=== PATIENT | male | born 1950 | race Caucasian/White ===

== ENCOUNTER 2017-09-01 10:04 | Emergency (ER) | payer MEDICARE, BC ==
[2017-09-01] MEDS ORDERED: NS 0.9% 1000 ML* 1,000 ML IV ONE (10:19)
[2017-09-01] MEDS ORDERED: methylPREDNISolone 125 MG* 2 ML VIAL IV ONE (10:20)
[2017-09-01] MEDS ORDERED: diPHENhydraMINE IV* 25 MG in NS 0.9% 50 ML* 50 ML IVPB ONE (10:20)
--- NOTE | 2017-09-01 10:21 | UC ---
Allergic Reaction HPI - HPI Summary HPI Summary: stung by a bee on right lower leg about 1 hour prior to arrival took 25 mg po Benadryl abut 30 mins [employer]. c/o some chest tightness ,rash some facial swelling - History of Current Complaint Chief Complaint: UCAllergicReaction Stated Complaint: BEE STING Time Seen by Provider: 09/01/17 10:09 Hx Obtained From: Patient Onset/Duration: Sudden Onset, Lasting Hours - 1, Still Present Severity Initially: Moderate Severity Currently: Moderate Location: Diffuse Character: Swelling, Pruritus Alleviating Factor(s): Antihistamines Associated Signs And Symptoms: Positive: Lightheadedness, Rash - Related Hx Possible Reaction To: Insect - Allergies/Home Medications Allergies/Adverse Reactions: Allergies Allergy/AdvReac Type Severity Reaction Status Date / Time bee venom protein (honey bee) Allergy Hives/Diff. Verified 09/01/17 10:36 Breathing/I tching Home Medications: Home Medications Levothyroxine TAB* [Synthroid 25 MCG TAB*] 25 mcg PO 0800 09/01/17 [History Confirmed 09/01/17] PMH/Surg Hx/FS Hx/Imm Hx Previously Healthy: No Endocrine History: Hypothyroidism, Dyslipidemia - Family History Known Family History: Positive: None - Social History Occupation: Retired Lives: With Family Alcohol Use: Rare Substance Use Type: None Review of Systems Constitutional: Negative Skin: Rash Eyes: Negative ENT: Negative Respiratory: Shortness Of Breath Cardiovascular: Other - chest tightness Gastrointestinal: Negative Genitourinary: Negative Motor: Negative Neurovascular: Negative Musculoskeletal: Negative Neurological: Negative Psychological: Negative Is Patient Immunocompromised?: No All Other Systems Reviewed And Are Negative: Yes Physical Exam Triage Information Reviewed: Yes Appearance: Well-Appearing, No Pain Distress, Well-Nourished Vital Signs Reviewed: Yes Eye Exam: Normal Eyes: Positive: Conjunctiva Clear ENT Exam: Normal ENT: Positive: Normal ENT inspection, Hearing grossly normal, Pharynx normal, TMs normal, Uvula midline. Negative: Nasal congestion, Tonsillar exudate, Trismus, Muffled voice, Hoarse voice, Dental tenderness, Sinus tenderness Dental Exam: Normal Neck exam: Normal Neck: Positive: Supple, Nontender, No Lymphadenopathy Respiratory Exam: Normal Respiratory: Positive: Chest non-tender, Lungs clear, Normal breath sounds, No respiratory distress, No accessory muscle use Cardiovascular Exam: Normal Cardiovascular: Positive: RRR, No Murmur, Pulses Normal, Brisk Capillary Refill Abdominal Exam: Normal Abdomen Description: Positive: Nontender, No Organomegaly, Soft Bowel Sounds: Positive: Present Musculoskeletal Exam: Normal Musculoskeletal: Positive: Strength Intact, ROM Intact, No Edema Neurological Exam: Normal Neurological: Positive: Alert, Muscle Tone Normal Psychological Exam: Normal Skin Exam: Other Skin: Positive: rashes - red raised, swelling below eyes Diagnostics - EKG Cardiac Rate: NL Cardiac Rhythm: Sinus: Normal Ectopy: PVCs ST Segment: Normal Re-Evaluation - Re-Evaluation First Eval Re-Evaluation Time: 11:30 Change: Improved Comment: all symptoms have resolved--ekg repeated NSR no PVC, no ST seg changes Allergic Reaction Course/Dx - Course Course Of Treatment: ivf, benadryl, solmedrol, observe follow with pcp in 2-3 days - Differential Dx/Diagnosis Provider Diagnoses: allergic reaction to Bee sting Discharge - Sign-Out/Discharge Documenting (check all that apply): Patient Departure - Discharge Plan Condition: Stable Disposition: HOME Prescriptions: predniSONE TAB* [Deltasone 20 MG TAB*] 40 mg PO DAILY 3 Days #6 tab Patient Education Materials: Diphenhydramine (By mouth), Insect Bite or Sting ( ED), General Allergic Reaction (ED), Cold Compress or Soak (ED) Referrals: Leland Stanford MD [Primary Care Provider] - 3 Days - Billing Disposition and Condition Condition: STABLE Disposition: Home
[2017-09-01 12:02] VITALS: BP 142/78
[2017-09-01] MEDS ORDERED: diPHENhydraMINE IV* 50 MG/ML 1 ml VIAL (BENADRYL) ONE (12:27)
== END 2017-09-01 12:00 | disposition home or self-care (01) ==
LOC: UCEAST 10:04
DX: T63.441A Toxic effect of venom of bees, accidental (unintentional), initial encounter (principal); M79.89 Other specified soft tissue disorders; E78.5 Hyperlipidemia, unspecified; E03.9 Hypothyroidism, unspecified
CPT/HCPCS: 93005; 96360; 96374; 96375; 99212; G0463; J1200; J2930

== ENCOUNTER 2018-09-16 08:56 | Emergency (ER) | payer MEDICARE, BC ==
[2018-09-16 09:08] VITALS: BP 143/73
--- NOTE | 2018-09-16 09:25 | UC ---
Skin Complaint HPI - HPI Summary HPI Summary: Patient is 68 year old male, who present today to the urgent care with bilateral eye swelling for past 3 days. There is swelling around the eyelids bilaterally and has progressively got worse.Denies any new soap, detergent , cosmetics, food or a possible exposure. He reports having a similar episode last year that resolved with some eye ointment. He denies any eye discharge or difficulty with his vision. He does not use any contact lenses but uses his reading glasses which are nickel plated. Denies any fever, chills, cough chest pain or shortness of breath . No diaphoresis. Denies any abdominal pain , nausea or vomiting , diarrhea or constipation. He has been taking Benadryl [id number]. - History of Current Complaint Chief Complaint: UCSkin Time Seen by Provider: 09/16/18 09:03 Stated Complaint: RASH AROUND EYES Hx Obtained From: Patient Pain Intensity: 4 - Allergy/Home Medications Allergies/Adverse Reactions: Allergies Allergy/AdvReac Type Severity Reaction Status Date / Time amoxicillin [From Augmentin] Allergy Hives Verified 09/16/18 09:08 bee venom protein (honey bee) Allergy Hives, Verified 09/16/18 09:08 hypotension clavulanic acid Allergy Hives Verified 09/16/18 09:08 [From Augmentin] Home Medications: Home Medications Ezetimibe TAB* [Zetia TAB*] 10 mg PO DAILY 09/16/18 [History Confirmed 09/16/18] diphenhydrAMINE HCl [Benadryl Allergy 25 MG CAP] 25 mg PO 09/16/18 [History] PMH/Surg Hx/FS Hx/Imm Hx - Additional Past Medical History Additional PMH: Past Medical History : Hypothyroidism, rheumatic fever as a child, hyperlipidemia. Past Surgical History: The surgery, sinus surgery Family History : non contributory Social History : Occasional alcohol, non smoker, no drug use. . Previously Healthy: Yes - Surgical History Surgical History: Yes Surgery Procedure, Year, and Place: sinus x3, knees 1977 - Family History Known Family History: Positive: None, Non-Contributory - Social History Alcohol Use: Occasionally Substance Use Type: None Smoking Status (MU): Never Smoked Tobacco Review of Systems All Other Systems Reviewed And Are Negative: Yes Constitutional: Positive: Negative Skin: Positive: Rash - Periorbital area bilaterally Eyes: Positive: Negative. Negative: Blurred Vision, Diplopia, Drainage, Eye Redness, Photophobia ENT: Positive: Negative Respiratory: Positive: Negative Cardiovascular: Positive: Negative Gastrointestinal: Positive: Negative Genitourinary: Positive: Negative Motor: Positive: Negative Neurovascular: Positive: Negative Musculoskeletal: Positive: Negative Neurological: Positive: Negative Psychological: Positive: Negative Is Patient Immunocompromised?: No Physical Exam - Summary Physical Exam Summary: Vital Signs Reviewed: Yes A+Ox3, no distress Eyes: Conjunctiva Clear, no discharge is noted EOMI and PERRLA intact. No pain with eye movements. ENT: Hearing grossly normal neck: supple Respiratory: Positive: No respiratory distress, No accessory muscle use Cardiovascular: skin color reflect adequate perfusion Musculoskeletal Exam: HUTCHINS x 4 without difficulty Neurological: Positive: Alert, ambulatory without difficulty Psychological: Positive: Normal Response To Family Skin: Swelling in the periorbital area is noted bilaterally. There is edema of the upper and the lower lids bilaterally. No drainage or fluctuation is noted Triage Information Reviewed: Yes Vital Signs: Initial Vital Signs Temp 97.7 F 09/16/18 09:03 Pulse 110 09/16/18 09:03 Resp 18 09/16/18 09:03 BP 143/73 09/16/18 09:03 Pulse Ox 100 09/16/18 09:03 Vital Signs Reviewed: Yes Course/Dx - Course Course Of Treatment: During the visit today, we discussed the findings - suspect periorbital cellulitis and contact dermatitis to questionable nickel on his reading glasses and further plan. I will prescribe the medication to the pharmacy . He should follow with primary care doctor in 2-3 days for recheck Advised him to follow-up with status controller for testing. Patient expressed understanding . - Diagnoses Provider Diagnosis: Allergic contact dermatitis, Cellulitis of periorbital region of both eyes Discharge - Sign-Out/Discharge Documenting (check all that apply): Patient Departure All imaging exams completed and their final reports reviewed: No Studies - Discharge Plan Condition: Stable Disposition: HOME Prescriptions: predniSONE [Prednisone 20 MG TAB] 60 mg PO DAILY 5 Days #15 tablet Sulfamethox/Trimethoprim DS* [Bactrim DS 800/160 TAB*] 1 tab PO BID 10 Days #20 tab Patient Education Materials: Contact Dermatitis (ED), Periorbital Cellulitis in Adults (ED) Referrals: Min Norton MD [Medical Doctor] - As Soon As Possible Leland Stanford MD [Primary Care Provider] - 2 Days Additional Instructions: Please start taking the medication as prescribed to the pharmacy . Take Benadryl 50 mg up to 4 times a day. Follow up with your primary care doctor in 2 - 3 days. Please follow up with status controller for the consult and get allergy testing. Patients blood pressure slightly high in Urgent care today , plan follow up with PCP for better control return in 4 weeks Return to Urgent care / ER if symptoms get worse. - Billing Disposition and Condition Condition: STABLE Disposition: Home
== END 2018-09-16 09:35 | disposition home or self-care (01) ==
LOC: UCEAST 08:56
DX: H05.013 Cellulitis of bilateral orbits (principal); L23.9 Allergic contact dermatitis, unspecified cause
CPT/HCPCS: 99212; G0463